=== PATIENT | female | born 1995 | race Caucasian/White ===

== ENCOUNTER 2019-02-28 11:50 | Inpatient (IN) | payer OTHER ==
[2019-02-28] MEDS ORDERED: AMPICILLIN SODIUM 2 GM VIAL ONE (12:44)
[2019-02-28] MEDS ORDERED: PROMETHAZINE HCL 25 MG/1 ML VIAL IVPB ONE (12:45)
[2019-02-28] MEDS ORDERED: BUTORPHANOL TARTRATE 1 MG/ML VIAL IVPB ONE (12:45)
[2019-02-28] MEDS: LACTATED RINGERS SOLUTION 1,000 ML IV SCH ×2 (13:00→18:10)
[2019-02-28] MEDS ORDERED: AMPICILLIN - 2 GM in SODIUM CHLORIDE 100 ML IVPB ONE (13:00)
--- NOTE | 2019-02-28 13:36 | CONSULT ---
Past Medical History, Laborist - Primary Care Physician PCP:: Jack Rosenbaum (in labor) - Admission Chief Complaint: anat. at term History of Present Illness: Examined at 12:30 hrs. BP stable. Contractions regular, uncomfortable. 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 Cardio/Vascular: Denies/None Pulmonary: Denies/None Gastrointestinal: Denies/None Hepatobiliary: Denies/None Renal/: Denies/None Reproductive: Denies/None ...: 2 ...Para: 0 ...Spon : 1 ...EDC by Dates: 03/09/19 Heme/Onc: Denies/None Infectious Disease: Denies/None Psych: Denies/None Musculoskeletal: Denies/None Rheumatology: Denies/None ENT: Denies/None Endocrine: Denies/None Dermatology: Denies/None - Past Surgical History Past Surgical History: Yes: None - Smoking History Have you smoked in the past 12 months: No - Alcohol/Substance Use Hx Alcohol Use: No Review of Systems - Review of Systems Constitutional: reports: No Symptoms Eyes: reports: No Symptoms HENT: reports: No Symptoms Neck: reports: No Symptoms Cardiovascular: reports: No Symptoms Respiratory: reports: No Symptoms Gastrointestinal: reports: No Symptoms Genitourinary: reports: No Symptoms Breasts: reports: No Symptoms Reported Musculoskeletal: reports: No Symptoms Integumentary: reports: No Symptoms Neurological: reports: No Symptoms Endocrine: reports: No Symptoms Hematology/Lymphatic: reports: No Symptoms Psychiatric: reports: No Symptoms Physical Exam - Maternity Constitutional: Yes: Well Nourished, No Distress, Calm Eyes: Yes: WNL, Conjunctiva Clear, EOM Intact HENT: Yes: WNL, Atraumatic, Normocephalic Neck: Yes: WNL, Supple, Trachea Midline Cardiovascular: Yes: WNL, Regular Rate and Rhythm Breast(s): Yes: WNL - Abdominal Exam/OB Fundal Height: 40 Number of Fetuses: Single Presentation: Vertex Contractions: Yes Regularity: Regular Intensity: Mild/Mod Monitor Mode: External Heart Rate Location: [facility] Category: I Accelerations: Uniform Decelerations: None - Vaginal Exam/OB Vaginal Bleediing: No Speculum Exam: No Dilatation (cm): 2-3 Effacement (%): 30 Amniotic Membrane Status: Intact Presentation: Vertex/Position Station: -2 - Physical Exam Musculoskeletal: Yes: WNL Extremities: Yes: WNL Integumentary: Yes: WNL ...Motor Strength: WNL Psychiatric: Yes: WNL Problem List - Problems (1) Term Code(s): Z34.90 - ENCNTR FOR SUPRVSN OF NORMAL , UNSP, UNSP TRIMESTER (2) Active labor at term Code(s): PIF4361 - (3) Hypertension affecting in third trimester Code(s): O16.3 - UNSPECIFIED MATERNAL HYPERTENSION, THIRD TRIMESTER Assessment/Plan Term gestation in early labor. Labile hypertension; stable now GBS unknown. Admit. Allow labor to develop. AROM, Oxytocin, pain relief as needed. Ampi GBS prophylaxis. Dr. Rosenbaum aware.
[2019-02-28 13:56] VITALS: BMI 29.0
[2019-02-28 14:11] LABS: BASO % 0.3 % (0-2.0); EOS % 0.6 % (0-4.5); HEMATOCRIT 41.5 % (32.4-45.2); HEMOGLOBIN 13.9 GM/dL (10.7-15.3); LYMPH % 19.1 % (8-40); MCH 29.8 pg (25.7-33.7); MCHC 33.6 g/dl (32.0-36.0); MEAN CELL VOLUME 88.8 fl (80-96); MONO % 8.2 % (3.8-10.2); NEUT % 71.8 % (42.8-82.8); PLATELET COUNT 172 K/MM3 (134-434); RBC 4.67 M/mm3 (3.60-5.2); RDW 13.8 % (11.6-15.6); WHITE BLOOD COUNT 11.2 K/mm3 (4.0-10.0)
[2019-02-28 14:32] LABS: INR 0.9 (0.83-1.09); PROTHROMBIN TIME (PATIENT) 10.6 SEC (9.7-13.0)
[2019-02-28 14:35] LABS: ACTIVATED PTT 30.4 SECONDS (25.2-36.5); BLOOD UREA NITROGEN 6.1 mg/dL (7-18); CALCIUM 8.8 mg/dL (8.5-10.1); CREATININE 0.6 mg/dL (0.55-1.3); POTASSIUM 3.7 mmol/L (3.5-5.1)
[2019-02-28] MEDS ORDERED: AMPICILLIN SODIUM 1 GM VIAL ONE ×2 (16:22→20:12)
--- NOTE | 2019-02-28 16:51 | PN ---
Progress Note, Labor Vaginal Exam #2 Labor Exam Date: 02/28/19 Labor Exam Time: 16:45 Heart Rate (range): 140 Dilatation: 3 Effacement (%): 50 Amniotic Membrane Status: Intact Presentation: Vertex/Position Station: -1 (AROM - clear.)
[2019-02-28] MEDS: AMPICILLIN - 1 GM in SODIUM CHLORIDE 100 ML IVPB SCH ×2 (17:00→21:00)
[2019-02-28] MEDS ORDERED: NALOXONE HCL 0.4 MG/ML VIAL IVPUSH PRN (17:19)
[2019-02-28] MEDS ORDERED: FENTANYL/BUPIVACAINE/NS/PF - PCEA - 50 ML DISP.SYRIN EP ONE ×2 (17:21→21:00)
[2019-02-28] MEDS ORDERED: OXYTOCIN 30 UNITS in 0.9% NS 30 UNIT/500 ML INFUS.BAG IVPB ONE (17:23)
[2019-02-28] MEDS ORDERED: LIDO 2%/EPI 1:200000 PRESRVFRE (20 ML SDVIAL) ONE (17:26)
[2019-02-28] MEDS ORDERED: FENTANYL/BUPIVACAINE/NS/PF - PCEA - 50 ML DISP.SYRIN EP SCH (17:30)
[2019-02-28] MEDS ORDERED: OXYTOCIN 30 UNITS in 0.9% NS 30 UNIT/500 ML INFUS.BAG IVPB SCH (17:30)
--- NOTE | 2019-02-28 17:33 | HP ---
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: Alzheimer's, CVA, Dementia, Migraine, Multiple Sclerosis, Peripheral Neuropathy, Parkinson's, Seizure, Syncope, TIA, Vertigo, Other Cardiovascular: No: AFIB, Aneurysm, Aortic Insufficiency, Aortic Stenosis, CAD, CHF, Deep Vein Thrombosis, HTN, Hyperlipdemia, [place], Mitral Insufficiency, Mitral Stenosis, Murmur, Pulmonary Hypertension, Other Pulmonary: No: Asthma, Bronchitis, Cancer, COPD, O2 Dependent, Pneumonia, Previously Intubated, Pulmonary Embolus, Pulmonary Fibrosis, Sleep Apnea, Other Gastrointestinal: No: Ascites, Cancer, Constipation, Crohn's Disease, Diverticulitis, Diverticulosis, Esophageal Varices, Gastritis, GERD, GI Bleed, Hemorrhoids, Hiatal Hernia, Inflamatory Bowel Disease, Irritable Bowel Disease, Pancreatitis, Peptic Ulcer Disease, Ulcerative Colitis, Other Hepatobiliary: No: Cirrhosis, Cholelithiasis, Cholecystitis, Choledocholithiasis , Hepatitis A, Hepatitis B, Hepatitis C, Other Renal/: No: Renal Failure, Renal Inusuff, BPH, Cancer, Hematuria, Hemodialysis , Neurogenic Bladder, Renal Calculi, UTI, Other Reproductive: No: Ectopic , Endometriosis, Fibroids, PID, Polycystic Ovary Syndrome, Postmenopausal, Other ...: 2 ...Para: 0 ...Term: 0 ...: 0 ...Spon : 1 ...Induced : 0 ...Multiple Gestation: 0 ...LMP: 05/31/18 ... Weeks Gestation by Dates: 38.5 ...EDC by Dates: 03/09/19 ...EDC by Sono: 03/09/19 Heme/Onc: No: Anemia, B12 Deficiency, Bleeding Disorder, Cancer, Current Chemotherapy, Current Radiation Therapy, Hemochromatosis, Hypercoaguable State, Myeloproliferative Synd, Sickle Cell Disease, Sickle Cell Trait, Thrombocytopenia, Other Infectious Disease: No: AIDS, C-Diff, Herpes Zoster, HIV, MRSA, STD's, Tuberculosis, VREF, Other Psych: No: Addictions, Anxiety, Bipolar, Depression, Panic, Psychosis, Schizophrenia, Other Musculoskeletal: No: Bursitis, Chronic low back pain, Hemiparesis, Hemiplegia, Osteoarthritis, Paraplegia, Other Rheumatology: No: Fibromyalgia, Gout, Lupus, Rheumatoid Arthritis, Sarcoidosis, Vasculitis, Other ENT: No: Allergic Rhinitis, Sinusitis, Other Endocrine: No: Walden's Disease, Teachey's Disease, Diabetes Insipidus, Diabetes Mellitus, Hyperparathyroidism, Hyperthyroidism, Hypothyroidism, Osteopenia, SIADH, Other Dermatology: No: Basal Cell, Cellulitis, Eczema, Melanoma, Psoriasis, Squamous Cell, Other - Past Surgical History Past Surgical History: Yes: None. No: AAA Repair, AICD, Amputation, Appendectomy, Arthrosocopy, AV Fistula/Graft, Bariatric Surgery, Breast Biopsy, Bypass, CABG, Carotid Endarterectomy, Cataract Removal, Cholecystectomy, Colectomy, Colonoscopy, Colostomy, Craniotomy, , Cystectomy, Hernia Repair, Hysterectomy, Ileal Conduit, Ileosotomy, Joint Replacement, Kidney Transplant, Laminectomy, Liver Transplant, Mastectomy, Nephrectomy, Oopherectomy , Orchiectomy, Permanent Pacemaker, Prostatectomy, Splenectomy, Stent, Thoracotomy, TURP, Tonsillectomy, Tubal Ligation, Upper Endoscopy, Valve Replacement, Vasectomy, Vein Stripping/Ligation Hx Myomectomy: No Hx Transabdominal Cerclage: No - Advance Directives Advance Directives: Yes: Living Will - Smoking History Smoking history: Never smoked Have you smoked in the past 12 months: No - Alcohol/Substance Use Hx Alcohol Use: No History of Substance Use: reports: None - Social History Usual Living Arrangement: Yes: With Significant Other Do you think of yourself as: Straight/Heterosexual ADL: Independent History of Recent Travel: No Home Medications - Allergies Allergies/Adverse Reactions: Allergies Allergy/AdvReac Type Severity Reaction Status Date / Time sandy Allergy Severe Swelling Verified 02/28/19 12:52 No Known Drug Allergies Allergy Severe Swelling Verified 02/28/19 12:47 avocado Allergy Severe Swelling Uncoded 02/28/19 12:48 pineapple Allergy Severe Swelling Uncoded 02/28/19 12:52 watermelon Allergy Severe Swelling Uncoded 02/28/19 12:53 - Home Medications Home Medications: Ambulatory Orders Vits96/Iron Fum/Folic [ Tablet] 1 each PO DAILY 02/28/19 Family Medical History Family History: Denies Review of Systems - Review of Systems Constitutional: reports: No Symptoms Eyes: reports: No Symptoms HENT: reports: No Symptoms Neck: reports: No Symptoms Cardiovascular: reports: No Symptoms Respiratory: reports: No Symptoms Gastrointestinal: reports: No Symptoms Genitourinary: reports: No Symptoms Breasts: reports: No Symptoms Reported Musculoskeletal: reports: No Symptoms Integumentary: reports: No Symptoms Neurological: reports: No Symptoms Endocrine: reports: No Symptoms Hematology/Lymphatic: reports: No Symptoms Psychiatric: reports: No Symptoms Pain Intensity: 5 Physical Exam - Maternity Vital Signs: Vital Signs Temperature 98.7 F 02/28/19 16:00 Pulse Rate 93 H 02/28/19 17:00 Respiratory Rate 02/28/19 17:00 Blood Pressure 146/86 02/28/19 17:00 O2 Sat by Pulse Oximetry (%) Constitutional: Yes: Well Nourished, No Distress, Calm Eyes: Yes: WNL, Conjunctiva Clear, EOM Intact HENT: Yes: WNL, Atraumatic, Normocephalic Neck: Yes: WNL, Supple, Trachea Midline Cardiovascular: Yes: WNL, Regular Rate and Rhythm Lungs: Clear to auscultation Breast(s): Yes: WNL - Abdominal Exam/OB Fundal Height: 38 Number of Fetuses: Single Presentation: Vertex Contractions: Yes Regularity: Irregular Intensity: Moderate Monitor Mode: External Heart Rate Location: [facility] Category: I Accelerations: Uniform Decelerations: None - Vaginal Exam/OB Vaginal Bleediing: No Speculum Exam: No Dilatation (cm): 3 Effacement (%): 60 % Amniotic Membrane Status: Intact Amniotic Fluid: Yes: Clear Presentation: Vertex/Position Station: -2 - Physical Exam Musculoskeletal: Yes: WNL Extremities: Yes: WNL Edema: Yes Edema: LUE: 1+, RUE: 1+, LLE: 1+ Integumentary: Yes: WNL Deep Tendon Reflex Grade: Normal +2 ...Motor Strength: WNL Psychiatric: Yes: WNL, Alert, Oriented - Labs Lab Results: CBC, BMP 02/28/19 13:30 02/28/19 13:30 Hemorrhage Risk Assessment - Risk Factors Medium Risk Factors: Yes: None High Risk Factors: Yes: None Risk Score: 1 Risk Level: Medium Risk Assessment/Plan pt wants to walk, then piocin, and epidura;
[2019-02-28] MEDS ORDERED: BUPIVACAINE HCL/PF 0.5% (5 MG/ML) 30 ML VIAL IJ ONE (20:03)
[2019-02-28] MEDS ORDERED: LIDOCAINE HCL 1% PRESERVATIVE FREE - 30ML VIAL ONE (22:37)
[2019-02-28] MEDS ORDERED: OXYTOCIN 20 UNITS in 0.9% NS 20 UNIT/1,000 ML INFUS.BAG IV ONE (22:37)
--- NOTE | 2019-02-28 22:58 | PN ---
Progress Note (short form) - Note Progress Note: 5pm, 4 to 5 cm, -2, just started pitocin, uc q 3 min , comfortable w epidural , nst reactive
--- NOTE | 2019-02-28 23:00 | PN ---
Progress Note (short form) - Note Progress Note: 945 pm, 8 to 9 cm, 0 station, 100%, nst reactive, continue pitocin, and epidural , pushing soon
--- NOTE | 2019-02-28 23:01 | PN ---
Progress Note (short form) - Note Progress Note: 1045 pm, 10 cm, c/o pressure, pushing soon after epidural wearing off
[2019-03-01] MEDS ORDERED: IBUPROFEN 600 MG TABLET (FP) PO ONE (00:11)
[2019-03-01] MEDS ORDERED: ACETAMINOPHEN 325 MG TABLET (FP) ONE (00:11)
[2019-03-01] MEDS: IBUPROFEN 600 MG TABLET (FP) PO PRN ×3 (00:15→20:35)
[2019-03-01] MEDS: ACETAMINOPHEN 325 MG TABLET (FP) PO PRN ×3 (00:15→20:35)
[2019-03-01] MEDS ORDERED: oxyCODONE HCL 5 MG TABLET PO PRN (00:17)
[2019-03-01] MEDS ORDERED: WITCH HAZEL 50% (TUCKS) 40 PAD/JAR PAD TP PRN (00:17)
[2019-03-01] MEDS ORDERED: BISACODYL 10 MG SUPP.RECT RC PRN (00:17)
[2019-03-01] MEDS ORDERED: METHYLERGONOVINE MALEATE 0.2 MG/1 ML AMP IM PRN (00:17)
[2019-03-01] MEDS ORDERED: BENZOCAINE 20% 57 GM BOTTLE TP PRN (00:17)
[2019-03-01] MEDS ORDERED: BENZOCAINE 28 GM HEMORRHOIDAL OINTMENT TP PRN (00:17)
--- NOTE | 2019-03-01 00:25 | PN ---
Delivery - Delivery Vaginal Delivery: No Problems (no complications, pushed well,) Type of Anesthesia: Local, Epidural Episiotomy/Laceration: Right Mediolateral EBL (cc): 250 Delivery, Single - Stages of Labor Date 1st Stage Initiatied: 02/28/19 Date 2nd Stage Initiated: 02/28/19 Date of Delivery: 02/28/19 Date Placenta Delivered: 02/28/19 Placenta: Yes: Spontaneous - Condition of Infant Patient Account Liaison/Audio Specialist Present: No Gender: Female Position: Left, OA - [place] Feeding Plan Initial Plan: Exclusive throughout hospitalization Benefits of Exclusively reinforced: Yes
[2019-03-01] MEDS ORDERED: OXYTOCIN 20 UNITS in 0.9% NS 20 UNIT/1,000 ML INFUS.BAG IV SCH (00:30)
[2019-03-01] MEDS ORDERED: oxyCODONE HCL 5 MG TABLET ONE (02:09)
--- NOTE | 2019-03-01 08:32 | PN ---
Post Progress Note - Subjective Subjective: PPD # 1. VSS. Feels well. Nursing. Type of Delivery: Vital Signs: Vital Signs Temperature 98.3 F 03/01/19 05:58 Pulse Rate 76 03/01/19 05:58 Respiratory Rate 18 03/01/19 05:58 Blood Pressure 141/78 03/01/19 05:58 O2 Sat by Pulse Oximetry (%) 99 03/01/19 02:00 Breast Exam: Yes: Soft (discussed latching, position) Uterus: Yes: Fundus Firm Abdomen/GI: Yes: Abdomen soft Lochia: Yes: Rubra Lochia, amount: Moderate Extremities: Yes: Calves non-tender Perineum: Yes: Episiotomy (not swollen; tender.) Activity: Ambulating - Labs Labs: CBC WBC 11.2 K/mm3 (4.0-10.0) H 02/28/19 13:30 RBC 4.67 M/mm3 (3.60-5.2) 02/28/19 13:30 Hgb 13.9 GM/dL (10.7-15.3) 02/28/19 13:30 Hct 41.5 % (32.4-45.2) 02/28/19 13:30 MCV 88.8 fl (80-96) 02/28/19 13:30 MCH 29.8 pg (25.7-33.7) 02/28/19 13:30 MCHC 33.6 g/dl (32.0-36.0) 02/28/19 13:30 RDW 13.8 % (11.6-15.6) 02/28/19 13:30 Plt Count 172 K/MM3 (134-434) 02/28/19 13:30 MPV 10.0 fl (7.5-11.1) 02/28/19 13:30 Absolute Neuts (auto) 8.0 K/mm3 (1.5-8.0) 02/28/19 13:30 Neutrophils % 71.8 % (42.8-82.8) 02/28/19 13:30 Lymphocytes % 19.1 % (8-40) 02/28/19 13:30 Monocytes % 8.2 % (3.8-10.2) 02/28/19 13:30 Eosinophils % 0.6 % (0-4.5) 02/28/19 13:30 Basophils % 0.3 % (0-2.0) 02/28/19 13:30 Nucleated RBC % 0 % (0-0) 02/28/19 13:30 Problem List - Problems (1) Term Code(s): Z34.90 - ENCNTR FOR SUPRVSN OF NORMAL , UNSP, UNSP TRIMESTER (2) Active labor at term Code(s): UUS8894 - (3) Hypertension affecting in third trimester Code(s): O16.3 - UNSPECIFIED MATERNAL HYPERTENSION, THIRD TRIMESTER Assessment/Plan Delivered vaginally last night. Feels well. Trying to breast feed. Encouraged. Exam WNL. BP stable. Instructions given.
[2019-03-02 08:20] LABS: BASO % 0.3 % (0-2.0); EOS % 0.9 % (0-4.5); HEMATOCRIT 26.5 % (32.4-45.2); LYMPH % 18.4 % (8-40); MCHC 34.1 g/dl (32.0-36.0); MEAN CELL VOLUME 87.9 fl (80-96); MEAN PLT VOLUME 8.8 fl (7.5-11.1); MONO % 6.2 % (3.8-10.2); NEUT % 74.2 % (42.8-82.8); PLATELET COUNT 132 K/MM3 (134-434); RBC 3.01 M/mm3 (3.60-5.2); RDW 13.8 % (11.6-15.6)
[2019-03-02] MEDS ORDERED: DIPHTH,PERTUSS(ACELL),TET 0.5 ML DISP.SYRIN IM ONE (10:00)
[2019-03-02] MEDS ORDERED: FLU VACC QS2019-20(6MOS UP)/PF 60 MCG/0.5 ML SYRINGE IM ONE (10:00)
[2019-03-02] MEDS ORDERED: FLU VACCINE QUAD 60 MCG/0.5 ML (MDV 19-20) IM ONE (10:00)
--- NOTE | 2019-03-02 21:44 | PN ---
Post Progress Note Post Day: 2 Type of Delivery: Vital Signs: Vital Signs Temperature 98.2 F 03/02/19 21:20 Pulse Rate 83 03/02/19 21:20 Respiratory Rate 20 03/02/19 21:20 Blood Pressure 140/89 03/02/19 21:20 O2 Sat by Pulse Oximetry (%) 99 03/01/19 23:19 Breast Exam: Yes: Soft Uterus: Yes: Fundus Firm, Fundus below umbilicus Abdomen/GI: Yes: Abdomen soft, Passing flatus, Tolerating PO Lochia: Yes: Serosa Lochia, amount: Small Extremities: Yes: Calves non-tender Perineum: Yes: Episiotomy Activity: Ambulating (dc tp home tomorrow ) - Labs Labs: CBC WBC 13.0 K/mm3 (4.0-10.0) H 03/02/19 07:15 RBC 3.01 M/mm3 (3.60-5.2) L 03/02/19 07:15 Hgb 9.0 GM/dL (10.7-15.3) L 03/02/19 07:15 Hct 26.5 % (32.4-45.2) L D 03/02/19 07:15 MCV 87.9 fl (80-96) 03/02/19 07:15 MCH 30.0 pg (25.7-33.7) 03/02/19 07:15 MCHC 34.1 g/dl (32.0-36.0) 03/02/19 07:15 RDW 13.8 % (11.6-15.6) 03/02/19 07:15 Plt Count 132 K/MM3 (134-434) L D 03/02/19 07:15 MPV 8.8 fl (7.5-11.1) D 03/02/19 07:15 Absolute Neuts (auto) 9.6 K/mm3 (1.5-8.0) H 03/02/19 07:15 Neutrophils % 74.2 % (42.8-82.8) 03/02/19 07:15 Lymphocytes % 18.4 % (8-40) 03/02/19 07:15 Monocytes % 6.2 % (3.8-10.2) 03/02/19 07:15 Eosinophils % 0.9 % (0-4.5) 03/02/19 07:15 Basophils % 0.3 % (0-2.0) 03/02/19 07:15 Nucleated RBC % 0 % (0-0) 03/02/19 07:15
--- NOTE | 2019-03-02 21:48 | DS ---
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 Vital Signs: Vital Signs Temperature 98.2 F 03/02/19 21:20 Pulse Rate 83 03/02/19 21:20 Respiratory Rate 20 03/02/19 21:20 Blood Pressure 140/89 03/02/19 21:20 O2 Sat by Pulse Oximetry (%) 99 03/01/19 23:19 Constitutional: Yes: Well Nourished, No Distress, Calm Eyes: Yes: WNL, Conjunctiva Clear, EOM Intact HENT: Yes: WNL, Atraumatic, Normocephalic Neck: Yes: WNL, Supple, Trachea Midline Cardiovascular: Yes: WNL, Regular Rate and Rhythm Respiratory: Yes: WNL, Regular, CTA Bilaterally Gastrointestinal: Yes: WNL, Normal Bowel Sounds, Soft ...Rectal Exam: Yes: WNL Renal/: Yes: WNL Pelvis: Yes: WNL External Genitalia: Yes: Normal Internal Exam Deferred: No Vaginal Exam: Yes: Normal Cervix: Yes: Normal Uterus: Yes: Normal ....Post : Yes: Uterus firm, Uterus non-tender Breast(s): Yes: WNL Musculoskeletal: Yes: WNL Extremities: Yes: WNL Edema: Yes Edema: LUE: 1+, RUE: 1+, LLE: 1+, RLE: 1+ Integumentary: Yes: WNL Wound/Incision: Yes: Clean/Dry, Well Approximated Neurological: Yes: WNL, Alert, Oriented ...Motor Strength: WNL Psychiatric: Yes: WNL, Alert, Oriented Labs: CBC, BMP 03/02/19 07:15 02/28/19 13:30 Delivery - Delivery Vaginal Delivery: No Problems (no complications, pushed well,) Type of Anesthesia: Local, Epidural Episiotomy/Laceration: Right Mediolateral EBL (cc): 250 Delivery, Single - Stages of Labor Date 1st Stage Initiatied: 02/28/19 Time 1st Stage Initiated: 11:00 Date 2nd Stage Initiated: 02/28/19 Time 2nd Stage Initiated: 22:45 Date of Delivery: 02/28/19 Time of Delivery: 23:48 Time Placenta Delivered: 23:53 Placenta: Yes: Spontaneous - Condition of Client Delivery Manager/Allied Health Teacher Present: No Infant Gender: Female Weight: 2.92 kg Position: Left, OA Total Hours ROM (Hrs/Mins): 6 hours 8 minutes - 1 Minute Total Score: 9 5 Minutes Total Score: 9 - [place] Feeding Plan Initial Plan: Exclusive throughout hospitalization Benefits of Exclusively reinforced: Yes Discharge Summary Problems reviewed: Yes Reason For Visit: LABOR ADMIT Current Active Problems Active labor at term (Acute) Hypertension affecting in third trimester (Acute) Term (Acute) Procedures: Principal: Other Procedures: none Hospital Course: uneventful Health Concerns: none Plan of Treatment: oob as possible as possible Goals: return to work in 6 weeks Condition: Good - Instructions Diet, Activity, Other Instructions: Physical activity Resume your normal everyday activity as tolerated no heavy lifting or exercise until seen by your surgeon. You may walk unlimited jhonny of and climb stairs. You may resume driving the car when you feel safe and comfortable behind the wheel. No sexual activity as instructed. Wound care If you have a bandage, leave it on, and keep dry for 48-72 hours. After that time discard the outer bandage. If they are tapes on the skin under the out of bandage leave them in place. They will peel off in the next 7 to 10 days. Do Not Peel them off. You may shower the day after surgery. If there are tapes present on the skin, you may shower over them. Diet There are no dietary restrictions. Eat healthy, high-fiber foods. Drink 6 to 8 glasses of liquid each day. This will assist in keeping your bowels are regular. Pain management You may take Tylenol or acetaminophen or Ibuprofen (for example, Motrin, Advil etc.) from my pain prescription medication is ordered should be taken as prescribed for moderate to severe pain. Call MD for any of the following: call dr carmona [phone] for 6 weeks appointment Severe pain not relieved by medication Fever of 101 or higher Excessive bleeding or drainage on dressing Inability to urinate Disposition: HOME - Home Medications Comprehensive Discharge Medication List: Ambulatory Orders Vits96/Iron Fum/Folic [ Tablet] 1 each PO DAILY 02/28/19 Prescription Drug Monitoring Program (I-STOP) results: I-STOP reviewed and no issues identified
[2019-03-02] MEDS ORDERED: SENNOSIDES/DOCUSATE COMBO (SENNA PLUS) TABLET (UD) PO PRN (22:00)
[2019-03-03] MEDS: ACETAMINOPHEN 325 MG TABLET (FP) PO PRN (04:19)
[2019-03-03] MEDS: IBUPROFEN 600 MG TABLET (FP) PO PRN (04:20)
--- NOTE | 2019-03-03 05:13 | PN ---
Post Progress Note Post Day: 3 Type of Delivery: Vital Signs: Vital Signs Temperature 98.2 F 03/02/19 21:20 Pulse Rate 83 03/02/19 21:20 Respiratory Rate 20 03/02/19 21:20 Blood Pressure 140/89 03/02/19 21:20 O2 Sat by Pulse Oximetry (%) 99 03/01/19 23:19 Breast Exam: Yes: Soft Uterus: Yes: Fundus Firm, Fundus below umbilicus Abdomen/GI: Yes: Abdomen soft, Passing flatus, Tolerating PO Lochia: Yes: Serosa Lochia, amount: Small Extremities: Yes: Calves non-tender Perineum: Yes: Intact Activity: Ambulating - Labs Labs: CBC WBC 13.0 K/mm3 (4.0-10.0) H 03/02/19 07:15 RBC 3.01 M/mm3 (3.60-5.2) L 03/02/19 07:15 Hgb 9.0 GM/dL (10.7-15.3) L 03/02/19 07:15 Hct 26.5 % (32.4-45.2) L D 03/02/19 07:15 MCV 87.9 fl (80-96) 03/02/19 07:15 MCH 30.0 pg (25.7-33.7) 03/02/19 07:15 MCHC 34.1 g/dl (32.0-36.0) 03/02/19 07:15 RDW 13.8 % (11.6-15.6) 03/02/19 07:15 Plt Count 132 K/MM3 (134-434) L D 03/02/19 07:15 MPV 8.8 fl (7.5-11.1) D 03/02/19 07:15 Absolute Neuts (auto) 9.6 K/mm3 (1.5-8.0) H 03/02/19 07:15 Neutrophils % 74.2 % (42.8-82.8) 03/02/19 07:15 Lymphocytes % 18.4 % (8-40) 03/02/19 07:15 Monocytes % 6.2 % (3.8-10.2) 03/02/19 07:15 Eosinophils % 0.9 % (0-4.5) 03/02/19 07:15 Basophils % 0.3 % (0-2.0) 03/02/19 07:15 Nucleated RBC % 0 % (0-0) 03/02/19 07:15 Assessment/Plan dc pt home today
[2019-03-03 11:28] VITALS: BP 126/83; PULSE 86; TEMP 98.6
== END 2019-03-03 13:50 | disposition home or self-care (01) | DRG 560 ==
LOC: JDEL 11:50 → JLDR 12:30 → J3W 03-01 02:35
PROVIDERS: ADMIT Obstetrics & Gynecology; ATTEND Obstetrics & Gynecology
PROC: 0W8NXZZ Division of Female Perineum, External Approach (ICD-10-PCS; principal; 2019-02-28)
PROC: 10E0XZZ Delivery of Products of Conception, External Approach (ICD-10-PCS; 2019-02-28)
DX: O13.4 Gestational [pregnancy-induced] hypertension without significant proteinuria, complicating childbirth (principal); Z3A.38 38 weeks gestation of pregnancy; Z37.0 Single live birth
CPT/HCPCS: 36415; 59409; 80048; 85025; 85610; 85730; 86593; 86850; 86900; 86901; 90686; 90715; G0008